=== PATIENT | male | born 1945 | race Caucasian/White ===

== ENCOUNTER → 2017-03-31 | Day surgery (SDC) | payer MEDICARE ==
[~2017-03-31] MED LIST: AMIT25TA20 PO; ASCO500 PO; ASPI81 PO; CARI350T19 PO; GEMF600T PO; LACT20SO4 PO; LACTATED RINGER'S 1000 ML INJ 1,000 ML ONE; MORP1CAP63 PO; PROPOFOL 500 MG/50 ML BTL IV ONE; PROT40TA PO; TAMS0.4C67 PO; TOPR50TA PO; [UNRECOGNIZED DRUG - CODE] PO
--- NOTE | 2017-03-31 14:01 | GIPROC ---
[facility] [address] [facility], [address] COLONOSCOPY PROCEDURE REPORT EXAM DATE: 03/31/2017 PATIENT NAME: Dawit Duran MR #: [id number] BIRTHDATE: 1945 ENDOSCOPIST: Smiley Huerta MD ORDER #: [id number] HAIR MACHINE OPERATOR: Monika Bonilla RN STATUS: outpatient INDICATIONS: The patient is a 72 yr old male here for a colonoscopy due to high risk patient with personal history of colonic polyps PROCEDURE PERFORMED: Colonoscopy, incomplete MEDICATIONS: None and Per Anesthesia. PREP QUALITY: 20 % obscured PREP TYPE:GoLytely ESTIMATED BLOOD LOSS: None CONSENT: The patient understands the risks and benefits of the procedure and understands that these risks include, but are not limited to: sedation, allergic reaction, infection, perforation and/or bleeding. Alternative means of evaluation and treatment include, among others: physical exam, x-rays, and/or surgical intervention. The patient elects to proceed with this endoscopic procedure. medical equipment was checked for proper function. Hand hygiene and appropriate measures for infection prevention was taken. After the risks, benefits and alternatives of the procedure were thoroughly explained, Informed consent was verified, confirmed and timeout was successfully executed by the treatment team. A digital exam revealed internal hemorrhoids The EC-2990Li ([id number]) endoscope was introduced through the anus and advanced to the hepatic flexure. The instrument was then slowly withdrawn as the colon was fully examined. COLON FINDINGS: Very tortous and difficult colon. Patietn could not be turned on his cack due to back surgery and anesthesia recommendations cecum seen from a distance. Retroflexed views revealed internal hemorrhoids and Retroflexed views revealed small internal hemorrhoids The scope was then completely withdrawn from the patient and the procedure terminated. PROCEDURE WITHDRAWAL TIME:6minutes ADVERSE EVENTS: There were no complications. IMPRESSIONS: 1. Very tortous and difficult colon 2. Retroflexed views revealed internal hemorrhoids 3. Retroflexed views revealed small internal hemorrhoids 4. Revealed internal hemorrhoids RECOMMENDATIONS: 1. Benefiber 2 tsp daily 2. Probiotics from any [employer] or health food store 3. Yearly rectal exams 4. CT colonography RECALL: NONE Smiley Huerta MD eSigned: Smiley Huerta MD 03/31/2017 2:01 PM cc: Landon Santana [facility] Lou and Billy Cross M.D.
--- NOTE | 2017-03-31 14:03 | GIPROC ---
[facility] [address] [facility], [address] EGD PROCEDURE REPORT EXAM DATE: 03/31/2017 PATIENT NAME: Dawit Duran MR #: [id number] BIRTHDATE: 1945 ATTENDING: Smiley Huerta MD ORDER #: [id number] RECREATIONAL DIRECTOR: Monika Bonilla RN STATUS: outpatient INDICATIONS: The patient is a 72 yr old male here for an EGD due to reflux PROCEDURE PERFORMED: EGD w/ biopsy MEDICATIONS: None and Per Anesthesia. TOPICAL ANESTHETIC: none CONSENT: The patient understands the risks and benefits of the procedure and understands that these risks include, but are not limited to: sedation, allergic reaction, infection, perforation and/or bleeding. Alternative means of evaluation and treatment include, among others: physical exam, x-rays, and/or surgical intervention. The patient elects to proceed with this endoscopic procedure. medical equipment was checked for proper function. Hand hygiene and appropriate measures for infection prevention was taken. After the risks, benefits and alternatives of the procedure were thoroughly explained, Informed consent was verified, confirmed and timeout was successfully executed by the treatment team. The patient was anesthetized with topical anesthesia and the EC-2990i ([id number]) and EC-2990Li ([id number]) endoscope was introduced through the mouth and advanced to the second portion of the duodenum. Retroflexed views revealed a hiatal hernia The gastroscope was then slowly withdrawn and removed. Gastritis antrum-biopsy esophagitis distal esophagus -biopsy. ADVERSE EVENTS: There were no complications. IMPRESSIONS: 1. Gastritis antrum-biopsy esophagitis distal esophagus -biopsy 2. Retroflexed views revealed a hiatal hernia RECOMMENDATIONS: 1. Anti-reflux regimen 2. Continue PPI 3. Avoid NSAIDS PATIENT CONDITION: stable DISPOSITION: Home REPEAT EXAM: EGD pending biopsy results Smiley Huerta MD eSigned: Smiley Huerta MD 03/31/2017 2:03 PM cc: [facility]ana [facility]
== END | disposition home or self-care (01) ==
LOC: ESDC 11:06
PROVIDERS: ATTEND Internal Medicine Gastroenterology
DX: K21.9 Gastro-esophageal reflux disease without esophagitis (principal); K44.9 Diaphragmatic hernia without obstruction or gangrene; K29.70 Gastritis, unspecified, without bleeding; K20.9 Esophagitis, unspecified; Z86.010 Personal history of colon polyps; K64.8 Other hemorrhoids
CPT/HCPCS: 00740; 00810; 43239; 45378; 88305; J3010; J7120